=== PATIENT | female | born 1970 | race Caucasian/White ===

== ENCOUNTER 2021-05-24 10:48 | Outpatient (REF) | payer OTHER, SELFPAY ==
--- NOTE | ~2021-05-24 | CT_ITS ---
EXAMINATION: CT SOFT TISSUE NECK WITH CONTRAST CLINICAL INFORMATION: Chronic neck pain. Adenopathy. COMPARISON: None TECHNIQUE: Following the intravenous administration of 60 mL of Omnipaque 350 intravenous contrast, helical imaging was performed in the axial plane with generation of coronal and sagittal reformatted images. This CT examination was performed using dose optimization techniques as appropriate, variously including the following: *Automated exposure control *Adjustment of mA and/or kV according to patient size (this includes techniques or standardized protocols for targeted exams where dose is matched to indication/reason for exam; i.e. extremities or head) *Use of iterative reconstruction technique DLP: 279 mGy-cm FINDINGS: No pathologic enhancement or contour abnormality visible within the oral cavity or pharyngeal mucosal space. Chronic postinflammatory tonsilliths noted within the palatine tonsils bilaterally. The laryngeal structures appear normal. The thyroid gland is diminutive but otherwise normal in appearance. The submandibular and parotid glands appear normal bilaterally. No pathologically enlarged cervical lymph nodes are identified. The imaged axillae and superior mediastinum appear normal. The carotid sheath vasculature opacifies normally. No periodontal or periapical lucencies seen in the dentition. The visualized paranasal sinuses are fairly well aerated. Rightward nasal septal deviation with nasal septal spurring distorting the right inferior turbinate. The mastoid air cells are clear. The TMJs are normal in appearance. No acute osseous abnormality identified. The craniovertebral junction appears normal. The visualized portions of the lungs are clear, somewhat obscured due to breathing motion artifacts. The orbits are normal. The imaged portions of the brain demonstrate no acute abnormality. CT/CT soft tissue neck w con IMPRESSION: No suspicious soft tissue enhancement or cervical adenopathy. No acute findings.
[2021-05-24] MEDS: iohexoL 350 MG/ML 100 ML INFUS..BTL IV (11:31)
== END 2021-05-24 10:49 | disposition home or self-care (01) ==
LOC: HO.CT 10:48
PROVIDERS: Visit Provider Internal Medicine
DX: R59.0 Localized enlarged lymph nodes (principal); M54.2 Cervicalgia
CPT/HCPCS: 70491; Q9967